=== PATIENT | female | born 1970 | race Caucasian/White ===

== ENCOUNTER 2019-06-08 09:00 | Outpatient (CLI) | payer BC | END 2019-06-08 10:00 | disposition home or self-care (01) | LOC: D.MAMMO 09:00 | PROVIDERS: ATTEND Nurse Practitioner Family | DX: Z12.31 Encounter for screening mammogram for malignant neoplasm of breast (principal) ==

== ENCOUNTER 2019-07-05 11:00 | Outpatient (CLI) | payer BC | END 2019-07-05 12:08 | disposition home or self-care (01) | LOC: D.MAMMO 11:00 | PROVIDERS: ATTEND Nurse Practitioner Family | DX: R92.8 Other abnormal and inconclusive findings on diagnostic imaging of breast (principal) ==

== ENCOUNTER → 2020-01-08 09:09 | Outpatient (CLI) | payer BC | END | disposition home or self-care (01) | LOC: D.US 09:09 | PROVIDERS: ATTEND Nurse Practitioner Family | DX: R92.8 Other abnormal and inconclusive findings on diagnostic imaging of breast (principal) ==